=== PATIENT | male | born 1995 | race Caucasian/White ===

== ENCOUNTER 2021-11-02 08:45 | Emergency (ER) | payer SELFPAY | END 2021-11-02 09:05 | disposition left against medical advice (07) | LOC: JP.ED 08:45 | DX: Z53.21 Procedure and treatment not carried out due to patient leaving prior to being seen by health care provider (principal) ==

== ENCOUNTER 2023-04-19 14:12 | Emergency (ER) | payer BC ==
[2023-04-19] MEDS ORDERED: Alum Hydrox/Mag Hydrox/Simeth 15 ML, Lidocaine 2% 15 ML PO ONE ×2 (16:41)
[2023-04-19] MEDS ORDERED: Sucralfate Suspension 1 GM/10 ML Cup PO ONE (16:42)
== END 2023-04-19 17:11 | disposition home or self-care (01) ==
LOC: JP.ED 14:12
DX: K20.90 Esophagitis, unspecified without bleeding (principal); F17.210 Nicotine dependence, cigarettes, uncomplicated; Z86.16 Personal history of COVID-19; Z20.822 Contact with and (suspected) exposure to COVID-19
CPT/HCPCS: 87635; 87651; 99283; A9270; U0002